=== PATIENT | female | born 1970 | race Two or more races ===

== ENCOUNTER 2016-10-06 10:03 | Emergency (ER) | payer BC ==
[~2016-10-06] VITALS: Ht 149.9 cm; Wt 77.2 kg
[2016-10-06 13:40] VITALS: BP 115/84
== END 2016-10-06 13:40 | disposition home or self-care (01) ==
LOC: ED 10:03
DX: H52.10 Myopia, unspecified eye (principal)
CPT/HCPCS: J1885; J2550; J7030